=== PATIENT | female | born 1990 | race Caucasian/White ===

== ENCOUNTER 2021-06-02 09:23 | Emergency (ER) | payer SELFPAY ==
[~2021-06-02] VITALS: Ht 152.4 cm; Wt 61.0 kg
[2021-06-02] MEDS ORDERED: HYOSCYAMINE0.125 M3 PO (10:14)
[2021-06-02] MEDS ORDERED: IBUPROFEN600 MG PO (10:14)
[2021-06-02] MEDS ORDERED: ZOFRAN4 M1 PO (10:14)
[2021-06-02 10:30] VITALS: BP 133/68
== END 2021-06-02 10:20 | disposition home or self-care (01) | DRG 392 ==
LOC: ED 09:23
DX: R10.32 Left lower quadrant pain (principal); R19.7 Diarrhea, unspecified; R11.0 Nausea